=== PATIENT | male | born 1950 | race Caucasian/White ===

== ENCOUNTER 2023-06-16 05:47 | Day surgery (SDC) | payer BC ==
[2023-06-15 12:01] VITALS: BMI 25.8
[~2023-06-16 05:47] MED LIST: EPINEPHrine 0.3 MG in Ophthalmic Irrigation Solution 500 ML IRR SCH
[2023-06-16] MEDS ORDERED: PHENYLephrine 2.5% Ophth Soln 15 ml Bottle ONE (06:06)
[2023-06-16] MEDS ORDERED: Cyclopentolate 1% Opth Drop 2 ML BOT ONE (06:06)
[2023-06-16] MEDS ORDERED: Midazolam HCl 2 mg/2 ml Vial ONE (06:29)
[2023-06-16] MEDS ORDERED: fentaNYL 50 mcg/mL 1 mL Vial ONE (06:29)
== END 2023-06-16 08:12 | disposition home or self-care (01) ==
LOC: SDC 05:47
PROVIDERS: ATTEND Ophthalmology Retina Specialist
PROC: 08NE3ZZ Release Right Retina, Percutaneous Approach (ICD-10-PCS; principal; 2023-06-16)
PROC: 08T43ZZ Resection of Right Vitreous, Percutaneous Approach (ICD-10-PCS; principal; 2023-06-16)
DX: H43.311 Vitreous membranes and strands, right eye (principal)
CPT/HCPCS: J0171; J2250; J3010